=== PATIENT | male | born 1985 | race Caucasian/White ===

== ENCOUNTER 2016-08-10 21:11 | Emergency (ER) | payer BC ==
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
[2016-08-10 22:16] LABS: CHLORIDE,CL 107 mmol/L (98-110); SODIUM,NA 144 mmol/L (136-146)
[2016-08-11 02:07] VITALS: BP 123/75
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
== END 2016-08-10 23:17 | disposition home or self-care (01) ==
LOC: MERGE 21:11 → MW.ED 21:11
DX: S60.211A Contusion of right wrist, initial encounter (principal); S20.211A Contusion of right front wall of thorax, initial encounter; V29.9XXA Motorcycle rider (driver) (passenger) injured in unspecified traffic accident, initial encounter; Y92.411 Interstate highway as the place of occurrence of the external cause
CPT/HCPCS: 36415; 70450; 70450-26; 71010; 71010-26; 73100-26-RT; 73100-RT; 80053; 85025; 99283; 99284-25